=== PATIENT | female | born 1985 | race Hispanic/Latino ===

== ENCOUNTER 2018-02-01 18:00 | Emergency (ER) | payer BC ==
[2018-02-01] MEDS ORDERED: Sodium Chloride 0.9% 1,000 ML IV STA (18:47)
--- NOTE | 2018-02-01 18:58 | ED PDOC ---
HPI: Headache Time Seen by Provider: 02/01/18 18:28 Chief Complaint (Nursing): Headache Chief Complaint (Provider): headache, fever, neck pain History Per: Patient Additional Complaint(s): 33-year-old female presents to emergency department with headache and fever that started yesterday. Patient states this is the worst headache she has ever had in her life. The patient has been taking Tylenol and Advil for the fever which does bring the headache pain down to about a 6 out of 10. Patient last took Tylenol and Advil about one hour prior to arrival and rates her current headache as a 6 out of 10. Patient denies any associated nausea, vomiting, dizziness or vision changes. She was seen earlier today by her primary doctor and was sent to ED for further evaluation. PMD: Dr. Recinos Past Medical History Reviewed: Historical Data, Nursing Documentation, Vital Signs Vital Signs: Last Vital Signs Temp 99.2 F 02/01/18 18:13 Pulse 78 02/01/18 18:13 Resp 16 02/01/18 18:13 BP 116/72 02/01/18 18:13 Pulse Ox 98 02/01/18 18:13 - Medical History PMH: Hyperthyroidism - Family History Family History: States: No Known Family Hx - Living Arrangements Living Arrangements: With Family - Social History Current smoker - smoking cessation education provided: No Alcohol: None Drugs: Denies - Home Medications Home Medications: Ambulatory Orders Medication Instructions Recorded No Known Home Med 02/01/18 - Allergies Allergies/Adverse Reactions: Allergies Allergy/AdvReac Type Severity Reaction Status Date / Time No Known Allergies Allergy Verified 02/01/18 18:13 Review of Systems ROS Statement: Except As Marked, All Systems Reviewed And Found Negative Constitutional: Positive for: Fever. Negative for: Chills Cardiovascular: Negative for: Chest Pain Respiratory: Negative for: Cough Gastrointestinal: Negative for: Nausea, Vomiting Neurological: Positive for: Headache (worst headache of her life). Negative for : Weakness, Numbness, Incoordination, Change in Speech, Confusion, Seizures, Altered Mental Status, Dizziness Physical Exam - Reviewed Nursing Documentation Reviewed: Yes Vital Signs Reviewed: Yes - Physical Exam Appears: Positive for: Well, Non-toxic, No Acute Distress Head Exam: Positive for: ATRAUMATIC, NORMAL INSPECTION Skin: Negative for: Rash Eye Exam: Positive for: Normal appearance, EOMI, PERRL ENT: Positive for: Pharyngeal Erythema Neck: Positive for: Normal, Pain On Movement Of Neck (Mild pain with movement of cervical spine, no nuchal rigidity) Cardiovascular/Chest: Positive for: Regular Rate, Rhythm Respiratory: Positive for: Normal Breath Sounds. Negative for: Wheezing, Respiratory Distress Gastrointestinal/Abdominal: Positive for: Soft. Negative for: Tenderness, Distended, Guarding Extremity: Positive for: Normal ROM Neurologic/Psych: Positive for: Alert, tree farmer II-XII (grossly intact), Oriented, Gait (steady). Negative for: Motor/Sensory Deficits, Aphasia, Facial Droop - Laboratory Results Result Diagrams: 02/01/18 19:00 02/01/18 19:00 Urine POC: Negative - ECG O2 Sat by Pulse Oximetry: 98 Pulse Ox Interpretation: Normal - Other Rad CT head X-Ray: Read By Radiologist X-Ray Interpretation: no acute finding Medical Decision Making Medical Decision Makin33 year old with fever, headache and neck pain Plan: test CT head CBC CMP Blood culture Flu swab Rapid strep, throat culture UA and urine culture CT head demonstrates no acute findings. Case was d/w ED attending Dr. Garcia. Patient consented for lumbar puncture which will be completed at bedside by Dr. Garcia. Disposition - Clinical Impression Clinical Impression: Severe headache - Patient ED Disposition Is Patient to be Admitted: Transfer of Care - Disposition Disposition: Transfer of Care Disposition Time: 19:48 Condition: FAIR Forms: [facility] ([place]ic) Patient Signed Over To: Teri Wright Handoff Comments: Case was signed out to DIMITRI Wright pending diagnostic testing results and final disposition Results - Lab Results Lab Results: 02/01/18 02/01/18 02/01/18 19:06 19:00 19:00 WBC 7.3 RBC 4.68 Hgb 14.0 Hct 41.0 MCV 87.6 MCH 30.0 MCHC 34.3 RDW 12.9 Plt Count 187 MPV 9.1 Neut % (Auto) 60.1 Lymph % (Auto) 21.4 Kem[place] % (Auto) 16.6 H Eos % (Auto) 1.5 Baso % (Auto) 0.4 Neut # (Auto) 4.4 Lymph # (Auto) 1.6 Kemper # (Auto) 1.2 H Eos # (Auto) 0.1 Baso # (Auto) 0.0 pO2 15 L VBG pH 7.38 VBG pCO2 52 VBG HCO3 26.2 VBG Total CO2 32.4 H VBG O2 Sat (Calc) 40.5 VBG Base Excess 4.4 H VBG Potassium 4.1 Glucose 103 Lactate 0.8 FiO2 21.0 Sodium 136.0 141 Potassium 4.2 Chloride 105.0 100 Carbon Dioxide 26 Anion Gap 19 BUN 11 Creatinine 0.7 Est GFR ( Amer) > 60 Est GFR (Non-Af Amer) > 60 Random Glucose 99 Calcium 9.6 Total Bilirubin 0.4 AST 33 ALT 34 Alkaline Phosphatase 59 Total Protein 8.3 H Albumin 4.5 Globulin 3.7 Albumin/Globulin Ratio 1.2 Venous Blood Potassium 4.1 Influenza Typ A,B (EIA) Grp A Beta Strep Ag 02/01/18 02/01/18 19:00 19:00 WBC RBC Hgb Hct MCV MCH MCHC RDW Plt Count MPV Neut % (Auto) Lymph % (Auto) Kemper % (Auto) Eos % (Auto) Baso % (Auto) Neut # (Auto) Lymph # (Auto) Kemper # (Auto) Eos # (Auto) Baso # (Auto) pO2 VBG pH VBG pCO2 VBG HCO3 VBG Total CO2 VBG O2 Sat (Calc) VBG Base Excess VBG Potassium Glucose Lactate FiO2 Sodium Potassium Chloride Carbon Dioxide Anion Gap BUN Creatinine Est GFR ( Amer) Est GFR (Non-Af Amer) Random Glucose Calcium Total Bilirubin AST ALT Alkaline Phosphatase Total Protein Albumin Globulin Albumin/Globulin Ratio Venous Blood Potassium Influenza Typ A,B (EIA) Negative for flu a/b Grp A Beta Strep Ag Negative
[2018-02-01 19:11] LABS: VENOUS BLOOD GAS BASE EXCESS 4.4 mmol/L (0.0-2.0); VENOUS BLOOD GAS PCO2 52 mmHg (40-60); VENOUS BLOOD GAS PO2 15 mm/Hg (30-55); VENOUS BLOOD PH 7.38 (7.32-7.43)
[2018-02-01 19:19] LABS: BASO % 0.4 % (0.0-2.0); EOS # 0.1 K/uL (0.0-0.7); EOS % 1.5 % (0.0-4.0); LYMPH # 1.6 K/uL (1.0-4.3); LYMPH % 21.4 % (20.0-40.0); MEAN CELL VOLUME 87.6 fl (81.0-99.0); MEAN CORPUSCULAR HGB CONC 34.3 g/dL (33.0-37.0); MEAN PLATELET VOLUME 9.1 fl (7.2-11.7); MONO # 1.2 K/uL (0.0-0.8); MONO % 16.6 % (0.0-10.0); NEUT # 4.4 K/uL (1.8-7.0); NEUT % 60.1 % (50.0-75.0); NRBC % 0.2 % (0.0-0.0); RBC 4.68 Mil/uL (3.80-5.20); RED CELL DISTRIBUTION WIDTH 12.9 % (11.5-14.5); WHITE BLOOD COUNT 7.3 K/uL (4.8-10.8)
[2018-02-01 19:41] LABS: ALB/GLOB RATIO 1.2 (1.0-2.1); ALBUMIN 4.5 g/dL (3.5-5.0); ALT/SGPT 34 U/L (9-52); AST/SGOT 33 U/L (14-36); BLOOD UREA NITROGEN 11 mg/dl (7-17); CALCIUM 9.6 mg/dL (8.4-10.2); GFR AFRICAN-AMERICAN > 60; GFR NON-AFRICAN AMERICAN > 60
[2018-02-01] MEDS ORDERED: Lidocaine 1% Inj (20ml) IJ STA (20:21)
--- NOTE | 2018-02-01 20:23 | ED PDOC ---
Addendum entered and electronically signed by Teri Wright PA 02/02/18 00:19 : Addendum Addendum: 02/02/18 00:19 chest xray: no acute disease, as read by inspector automatic typewriter Original Note: - Laboratory Results Result Diagrams: 02/01/18 19:00 02/01/18 19:00 <Cuauhtemoc Garcia - Last Filed: 02/01/18 20:51> - Laboratory Results Result Diagrams: 02/01/18 19:00 02/01/18 19:00 Urine POC: Negative - ECG O2 Sat by Pulse Oximetry: 98 <Teri Wright - Last Filed: 02/02/18 00:19> - Progress ED Course And Treament: Case endorsed to inspector automatic typewriter from [employer] [facility] pending LP procedure LP performed by Dr. Garcia (see procedure note) Patient observed in ED in supine position after procedure. CSF results WNL. Patient states she is feeling better and ready to be discharged. Rx Ibuprofen provided. Advised fluids, rest. Follow up PMD 2-3 days. Return precautions given. (Teri Wright) Disposition <Cuauhtemoc Garcia - Last Filed: 02/01/18 20:51> - POA Present On Arrival: None - Disposition Disposition: Routine/Home Disposition Time: 00:16 <Teri Wright - Last Filed: 02/02/18 00:19> - Clinical Impression Clinical Impression: Headache, Fever in adult - Disposition Referrals: Director Of Fundraising Service [Outside] Condition: IMPROVED Prescriptions: Fluticasone Nasal [Flonase] 1 actuation NS BID #1 bottle Ibuprofen [Motrin Tab] 1 tab PO Q6 PRN #20 tab PRN Reason: Pain, Moderate (4-7) Instructions: Headache, Adult, Fever, Adult (DC) Forms: [employer] ([place]) - Lumbar Puncture Procedure LP Procedure: Discussed Procedure W/Pt, Consent Form Completed, Head CT Completed, Use Of Sterile Technique, Injection Site Prepped W/Betadine Position for Procedure: Right Lateral Injection Location: L 3-4 (Traumatic tap, however able to obtain specimen with relative ease, fluid cleared from pink to clear from tubes 1 to 4) <Cuauhtemoc Garcia - Last Filed: 02/01/18 20:51>
[2018-02-01] MEDS ORDERED: Lidocaine 1% 20 MG/2 ML PF AMP ONE (20:24)
[2018-02-01 21:21] LABS: FLUID TYPE SPINAL FLUID
[2018-02-01 22:06] LABS: CSF APPEARANCE SL CLOUDY (CLEAR); CSF VOLUME 1 mL (0-1)
[2018-02-01 22:16] VITALS: TEMP 98.9
[2018-02-01 22:39] LABS: SQUAMOUS EPITHIAL 4 /hpf (0-5); URINE BACTERIA RARE (<OCC); URINE BILIRUBIN NEGATIVE (NEGATIVE); URINE BLOOD SMALL (NEGATIVE); URINE CLARITY CLOUDY (Clear); URINE COLOR YELLOW (YELLOW); URINE GLUCOSE (UA) NEG (Normal); URINE LEUKOCYTE ESTERASE NEG Leu/uL (Negative); URINE PROTEIN NEGATIVE (NEGATIVE)
[2018-02-01 23:46] LABS: CSF MONO/MACROPHAGE 3 % (0-0)
[2018-02-01 23:54] LABS: CSF APPEARANCE CLEAR/COLORLESS (CLEAR); CSF MONO/MACROPHAGE 0 % (0-0); CSF VOLUME 1 mL (0-1); FLUID TYPE SPINAL FLUID
[2018-02-01 23:56] VITALS: BP 118/69; PULSE 89; RESP 15
[2018-02-02 00:15] VITALS: O2SAT 98
--- NOTE | 2018-02-02 09:20 | RAD ---
HISTORY: fever COMPARISON: OpenNo prior. FINDINGS: LUNGS: No active pulmonary disease. PLEURA: No significant pleural effusion identified, no pneumothorax apparent. CARDIOVASCULAR: Normal. OSSEOUS STRUCTURES: Region. Minimal dextroscoliosis centered in the mid to lower thoracic VISUALIZED UPPER ABDOMEN: Normal. OTHER FINDINGS: None. IMPRESSION: No active disease.
--- NOTE | 2018-02-02 09:53 | CT ---
PROCEDURE: CT HEAD WITHOUT CONTRAST. HISTORY: Severe headache COMPARISON: None available. TECHNIQUE: Axial computed tomography images were obtained through the head/brain without intravenous contrast. Radiation dose: Total exam DLP = 785.89 mGy-cm. This CT exam was performed using one or more of the following dose reduction techniques: Automated exposure control, adjustment of the mA and/or kV according to patient size, and/or use of iterative reconstruction technique. FINDINGS: HEMORRHAGE: No intracranial hemorrhage. BRAIN: No mass effect or edema. No atrophy or chronic microvascular ischemic changes. VENTRICLES: No obstructive hydrocephalus however the ventricles are prominent. CALVARIUM: Unremarkable. PARANASAL SINUSES: Unremarkable as visualized. No significant inflammatory changes. MASTOID AIR CELLS: Unremarkable as visualized. No inflammatory changes. OTHER FINDINGS: Enlarged adenoids. IMPRESSION: No acute intracranial hemorrhage.
== END 2018-02-02 00:30 | disposition home or self-care (01) ==
LOC: H.ER 18:00
DX: R51 Headache (principal); E05.90 Thyrotoxicosis, unspecified without thyrotoxic crisis or storm
CPT/HCPCS: 70450; 71045; 80053; 81003; 81025; 82803; 82945; 83615; 84157; 85025; 87040; 87070; 87430; 87804; 89050; 99285; J7040